=== PATIENT | female | born 1960 | race Caucasian/White ===

== ENCOUNTER → 2020-07-20 13:55 | Outpatient (CLI) | payer BC, SELFPAY ==
--- NOTE | ~2020-07-20 | XR_ITS ---
EXAMINATION: XR abdomen/kub 1V EXAM DATE: 07/20/2020 14:45 INDICATION: History of kidney stones. TECHNIQUE: Frontal projection of the upper abdomen, frontal projection lower abdomen/pelvis for inter pretation. There is no prior study for comparison. FINDINGS: Left calyceal 7 mm stone identified, indicated. There is moderate amount of colonic stool and gas. Advanced lower lumbar facet arthropathy. Nonobstructive bowel gas pattern. IMPRESSION: Left nephrolithiasis. Reviewed, dictated and finalized at location A. IMPRESSION: Left nephrolithiasis.
--- NOTE | ~2020-07-20 | CT_ITS ---
EXAMINATION: CT abdomen pelvis wo con EXAM DATE: 07/20/2020 14:45 INDICATION: History kidney stones. TECHNIQUE: Spiral CT of the abdomen and pelvis was performed without contrast. Axial, coronal and s agittal images were reviewed. The dose-length product (DLP) for this examination was 205.02 mGy-cm. The exposure was tailored according to patient size (auto mA exposure control), and iterative recons truction (ASIR) was used as additional dose reduction technique. Correlation is made to KUB same date . FINDINGS: There is splenic hilar aneurysm measuring 1.3 cm. The liver, spleen, adrenal glands and pa ncreas are unremarkable. Gallbladder is unremarkable. No biliary obstruction. Left inferior calyce al stone measuring 7 mm, KUB positive. No hydronephrosis. The uterus is not identified and has likel y been surgically resected. The bladder is unremarkable. There is no retroperitoneal or pelvic lymp hadenopathy. The appendix is normal. The stomach and small bowel are unremarkable. There is moderate amount of c olonic stool. No free intraperitoneal gas. The heart is normal in size. There are no pericardial or pleural effusions. The lung bases are unremarkable. There are 3 left lower lobe nodules identifi ed measuring up to 4 mm, likely postinfectious. Optional one-year follow-up chest CT. There is mild e mphysema. Advanced facet arthropathy L4-5 and L5-S1. There are no osteoblastic or osteolytic lesions identified. IMPRESSION: 1. Left nephrolithiasis. 2. Splenic artery aneurysm. 3. Several left basilar nodules likely granulomata; optional one-year follow-up CT. Reviewed, dictated and finalized at location A. IMPRESSION: 1. Left nephrolithiasis. 2. Splenic artery aneurysm. 3. Several left basilar nodules likely granulomata; optional one-year follow-u p CT.
== END ==
PROVIDERS: PCP Family Medicine Sports Medicine; Visit Provider Nurse Practitioner Family
DX: N20.0 Calculus of kidney (principal); R35.0 Frequency of micturition; I72.8 Aneurysm of other specified arteries; R91.8 Other nonspecific abnormal finding of lung field
CPT/HCPCS: 74018; 74176

== ENCOUNTER → 2020-07-23 14:12 | Outpatient (CLI) | payer BC, SELFPAY ==
--- NOTE | ~2020-07-23 | XR_ITS ---
XR abdomen/kub 1V 07/23/2020 14:46 Indication: Left renal stone Procedure: KUB Comparison: 07/20/2020 Findings: Bowel gas pattern is nonobstructive. Moderate colonic fecal loading. There are left renal s tones. There are pelvic phleboliths. Lung bases unremarkable. No acute osseous abnormality. Impression: 1: Left nephrolithiasis. Reviewed, dictated and finalized at location B. Impression: 1: Left nephrolithiasis.
--- NOTE | ~2020-07-23 | US_ITS ---
US retroperitoneal comp 07/23/2020 14:41 Procedure: Realtime transabdominal ultrasound of the kidneys and bladder. Indication: Recent left kidney stone Comparison: No prior studies for comparison. Findings: Renal echotexture is normal bilaterally without hydronephrosis, contour deforming mass or r enal calculus. The right kidney measures 9.2 cm and left kidney measures 8.5 cm. Bladder within norm al limits. Impression: 1: Unremarkable renal ultrasound. No stones, masses or hydronephrosis. Reviewed, dictated and finalized at location B. Impression: 1: Unremarkable renal ultrasound. No stones, masses or hydronephrosis.
== END ==
PROVIDERS: PCP Family Medicine Sports Medicine; Visit Provider Nurse Practitioner Family
DX: N20.0 Calculus of kidney (principal)
CPT/HCPCS: 74018; 76770

== ENCOUNTER → 2021-01-31 14:15 | Outpatient (CLI) | payer BC, SELFPAY ==
--- NOTE | ~2021-01-31 | XR_ITS ---
EXAMINATION: XR abdomen/kub 1V DATE: 01/31/2021 15:23 INDICATION: Left renal stone. TECHNIQUE: A supine view of the abdomen on 2 radiographs was obtained. COMPARISON: CT abdomen and pelvis 07/20/2020 FINDINGS: There are no dilated loops of bowel. There is a 6 mm stone in left kidney. There are phlebo liths in the pelvis. IMPRESSION: 1. 6 mm left kidney stone. Reviewed, dictated and finalized at location A. IMPRESSION: 1. 6 mm left kidney stone.
== END ==
PROVIDERS: Visit Provider Nurse Practitioner Family
DX: N20.0 Calculus of kidney (principal)
CPT/HCPCS: 74018